=== PATIENT | female | born 1980 | race Caucasian/White ===

== ENCOUNTER 2021-03-24 10:27 | Outpatient (CLI) | payer BC ==
[2021-03-24 19:21] LABS: SARS-CoV-2 PCR by NAA Not Detected (NotDetected)
== END 2021-03-24 10:28 | disposition home or self-care (01) ==
LOC: CSHLAB 10:27
PROVIDERS: ATTEND Obstetrics & Gynecology
DX: Z20.822 Contact with and (suspected) exposure to COVID-19 (principal)
CPT/HCPCS: U0003; U0005

== ENCOUNTER 2021-03-26 20:40 | Day surgery (SDC) | payer BC ==
[2021-03-26 21:20] VITALS: BMI 31.2
== END 2021-03-26 22:30 | disposition home health service (06) ==
LOC: CSHLD/OP 20:40
PROVIDERS: ATTEND Obstetrics & Gynecology
DX: O36.8130 Decreased fetal movements, third trimester, not applicable or unspecified (principal); O24.415 Gestational diabetes mellitus in pregnancy, controlled by oral hypoglycemic drugs; O09.523 Supervision of elderly multigravida, third trimester; Z3A.38 38 weeks gestation of pregnancy; Z79.82 Long term (current) use of aspirin
CPT/HCPCS: 99282

== ENCOUNTER 2021-03-28 05:30 | Inpatient (IN) | payer BC ==
[~2021-03-28 05:30] MED LIST: Bupivacaine 0.25% HCL 30 ML VIAL ONE; Bupivacaine PF 0.5% 30 ML VIAL ONE
[2021-03-28] MEDS ORDERED: Promethazine HCl 25 MG/ML VIAL IM PRN ×2 (05:46→09:29)
[2021-03-28] MEDS ORDERED: Butorphanol Tartrate 1 MG/ML VIAL SLOW IVP PRN (05:46)
[2021-03-28] MEDS ORDERED: HYDROcodone/Acetaminophen 5/325 mg Tablet PO PRN ×3 (05:46→19:09)
[2021-03-28] MEDS ORDERED: hydrALAZINE 20 MG/ML VIAL SLOW IVP PRN ×2 (05:46→19:09)
[2021-03-28] MEDS ORDERED: Ibuprofen 800 MG TAB PO PRN (05:46)
[2021-03-28] MEDS ORDERED: Ondansetron PF 4 MG/2 ML Vial IVP PRN ×3 (05:46→19:09)
[2021-03-28] MEDS ORDERED: NS w/ Oxytocin 30 units 500 ML IV SCH ×3 (05:46→19:09)
[2021-03-28] MEDS ORDERED: Lidocaine 1% (PF) 30 ML VIAL SC PRN (05:46)
[2021-03-28] MEDS ORDERED: Penicillin G Potassium 5 MILL.UNITS in Sodium Chloride 0.9% 100 ML IVPB SCH (06:00)
[2021-03-28 06:01] VITALS: BMI 31.2
[2021-03-28] MEDS: Lactated Ringer's 1,000 ML IV SCH ×2 (06:14→19:20)
[2021-03-28 06:47] LABS: Hemoglobin 11.5 g/dL (12.0-15.5); Mean Corpuscular HGB CONC 32.3 g/dL (32.0-36.0); Mean Corpuscular Hemoglobin 26.4 pg (27.0-33.0); Mean Corpuscular Volume 81.8 fl (81.6-98.3); Mean Platelet Volume 9.7 fl (7.4-10.4); Platelet Count 306 10x3/uL (150-450); RBC Distribution Width 15.7 % (11.5-14.5); Red Blood Cell (RBC) Count 4.35 10x6/uL (3.90-5.03); White Blood Cell (WBC) Count 10.7 10x3/uL (3.5-10.5)
[2021-03-28 07:20] LABS: Syphilis Antibody Nonreactive (Nonreactive); Syphilis Antibody Index 0.05 S/CO (<1.00 Non-Reactive)
[2021-03-28 07:21] LABS: Hep B Surf Ag Non-Reactive S/CO (NonReactive)
[2021-03-28] MEDS ORDERED: Fentanyl 2 mcg/Bup 0.1% Cadd 100 ML ONE (08:30)
[2021-03-28] MEDS ORDERED: Lactated Ringer's 500 ML IV PRN (09:29)
[2021-03-28] MEDS ORDERED: Hydrocerin (Eucerin) Cream 120 gm Jar TOP PRN (09:29)
[2021-03-28] MEDS ORDERED: diphenhydrAMINE 50 MG/ML VIAL IVP PRN (09:29)
[2021-03-28] MEDS ORDERED: Naloxone HCl 0.4 mg/ml Vial IVP PRN ×2 (09:29)
[2021-03-28] MEDS ORDERED: Acetaminophen 325 MG TAB PO PRN (09:29)
[2021-03-28] MEDS ORDERED: ePHEDrine Sulfate 50 MG/10 ML VIAL SLOW IVP PRN (09:29)
[2021-03-28] MEDS ORDERED: Communication Order-Pharmacy FS SCH (09:30)
[2021-03-28] MEDS ORDERED: Fentanyl 2 mcg/Bupivacaine 0.1% Cassette 100 ML EPIDURAL SCH (09:30)
[2021-03-28] MEDS: Penicillin G 2.5 MILL.units 2.5 MILL.UNITS in Premix Bag 1 BAG IVPB SCH ×3 (10:05→19:21)
[2021-03-28] MEDS ORDERED: Bupivacaine 0.25% HCL 30 ML VIAL ONE (15:25)
[2021-03-28] MEDS ORDERED: Methylergonovine 0.2 MG/ML VIAL ONE (15:52)
[2021-03-28] MEDS ORDERED: Milk Of Magnesia 30 ML UDCUP PO PRN (19:09)
[2021-03-28] MEDS ORDERED: Boostrix 0.5 ML (Tdap) VIAL IM ONE (19:09)
[2021-03-28] MEDS ORDERED: Preparation H Ointment 28 GM TUBE PR PRN (19:09)
[2021-03-28] MEDS ORDERED: Benzocaine-Menthol 82.5 ML CAN TOP PRN (19:09)
[2021-03-28] MEDS ORDERED: Lanolin Ointment 7 GM TUBE TOP PRN (19:09)
[2021-03-28] MEDS ORDERED: Bisacodyl 10 MG SUPP PR PRN (19:09)
[2021-03-28] MEDS: HYDROcodone/Acetaminophen 5/325 mg Tablet PO PRN (19:33)
[2021-03-28] MEDS: Ibuprofen 800 MG TAB PO SCH (22:31)
[2021-03-28] MEDS: Docusate 100 MG CAP PO SCH (22:31)
[2021-03-29] MEDS: HYDROcodone/Acetaminophen 5/325 mg Tablet PO PRN ×3 (02:11→15:46)
[2021-03-29 05:51] LABS: Hemoglobin 9.7 g/dL (12.0-15.5)
[2021-03-29 05:58] LABS: Glucose 74 mg/dL (70-105)
[2021-03-29] MEDS: Ibuprofen 800 MG TAB PO SCH ×2 (06:16→13:55)
[2021-03-29] MEDS ORDERED: Ferrous Sulfate 325 MG TAB PO SCH (08:00)
[2021-03-29] MEDS: Docusate 100 MG CAP PO SCH ×2 (08:34→08:35)
[2021-03-29] MEDS ORDERED: Prenatal Vitamin 1 TAB PO SCH (09:00)
[2021-03-29 17:37] VITALS: BP 111/74; TEMP 98.5
== END 2021-03-29 17:30 | disposition home or self-care (01) | DRG 807 ==
LOC: CSHLD 05:37 → CSHPP 18:30
PROVIDERS: ADMIT Obstetrics & Gynecology; ATTEND Obstetrics & Gynecology
PROC: 10E0XZZ Delivery of Products of Conception, External Approach (ICD-10-PCS; principal; 2021-03-28)
PROC: 3E033VJ Introduction of Other Hormone into Peripheral Vein, Percutaneous Approach (ICD-10-PCS; 2021-03-28)
DX: O24.419 Gestational diabetes mellitus in pregnancy, unspecified control (principal); Z37.0 Single live birth; Z3A.39 39 weeks gestation of pregnancy; O99.02 Anemia complicating childbirth; D64.9 Anemia, unspecified
CPT/HCPCS: 36415; 36416; 51702; 82947; 85014; 85018; 85027; 86780; 86850; 86900; 86901; 87340; J2540; J3490; J7120; S0020